=== PATIENT | male | born 1950 | race Caucasian/White ===

== ENCOUNTER 2018-06-12 14:28 | Emergency (ER) | payer BC, OTHER ==
[2018-06-12 14:32] VITALS: TEMP 98.5; BMI 25.1
--- NOTE | 2018-06-12 14:35 | PDOC ---
Attending Attestation - Resident Resident Name: Erum Walker - HPI HPI: 06/12/18 16:04 Pt presents to the ED complaining of
--- NOTE | 2018-06-12 14:52 | PDOC ---
History of Present Illness - General Chief Complaint: Pain, Acute Stated Complaint: RT BACK, RT SIDE PAIN Time Seen by Provider: 06/12/18 14:31 History Source: Patient Exam Limitations: No Limitations - History of Present Illness Initial Comments: 06/12/18 14:40 67yo M with no significant PMH presenting with R sided pain [id number] that has been getting progressively getting worse. Pt says pain is R sided around his abdomen and back. Pain is worse when laying down and walking around. He denies pain with strenuous activity, eating, sitting, standing. He denies n/v/d, urinary urgency and dysuria. He states his stream is longer and that he has occasional frequency. He denies fever, chills, back injury, surgeries, chest pain, sob, weakness, numbness, tingling, hematuria. He has not seen a doctor in years however he does have an appointment with Dr. Gomez in July. He has not been taking any medications for the pain. PMD: none PMH: none PSH: none Meds: none Allergies: nkda Past History - Past Medical History Allergies/Adverse Reactions: Allergies Allergy/AdvReac Type Severity Reaction Status Date / Time No Known Allergies Allergy Verified 06/12/18 14:30 - Suicide/Smoking/Psychosocial Hx Smoking History: Never smoked Have you smoked in the past 12 months: No Information on smoking cessation initiated: No Hx Alcohol Use: (social) Review of Systems - Review of Systems Constitutional: No: Chills, Fever, Loss of Appetite, Night Sweats, Weakness, Unexplained wgt Loss HEENTM: No: Eye Pain, Blurred Vision Respiratory: No: Cough, Shortness of Breath, Hemoptysis Cardiac (ROS): No: Chest Pain, Edema, Lightheadedness, Palpitations, Syncope ABD/GI: No: Constipated, Diarrhea, Nausea, Poor Appetite, Rectal Bleeding, Vomiting, Tarry Stools : Yes: Frequency. No: Burning, Dysuria, Flank Pain, Hematuria, Testicular Swelling, Testicular Pain Musculoskeletal: Yes: See HPI, Back Pain. No: Joint Pain, Joint Swelling, Muscle Pain, Muscle Weakness, Neck Pain, Joint Stiffness Integumentary: No: Symptoms Reported Neurological: No: Headache, Numbness, Seizure, Tingling, Tremors, Weakness, Unsteady Gait, Ataxia, Dizziness *Physical Exam - Vital Signs Last Vital Signs Temp Pulse Resp BP Pulse Ox 98.5 F 84 18 133/112 H 98 06/12/18 14:28 06/12/18 14:28 06/12/18 14:28 06/12/18 14:28 06/12/18 14:28 - Physical Exam General Appearance: Yes: Nourished, Appropriately Dressed. No: Apparent Distress HEENT: positive: EOMI, DARYN, Normal ENT Inspection Neck: positive: Trachea midline, Supple. negative: Carotid bruit, Lymphadenopathy (R), Lymphadenopathy (L) Respiratory/Chest: positive: Lungs Clear, Normal Breath Sounds. negative: Crackles, Rales, Rhonchi, Stridor, Wheezing Cardiovascular: positive: Regular Rhythm, Regular Rate, S1, S2. negative: Edema , JVD, Murmur Vascular Pulses: Carotid (R): 2+, Carotid (L): 2+, Dorsalis-Pedis (R): 2+, Doralis-Pedis (L): 2+ Gastrointestinal/Abdominal: positive: Normal Bowel Sounds, Soft. negative: Pulsatile Mass, Protuberent, Distended, Guarding, Rebound, Tenderness, Mass Musculoskeletal: positive: Other (negative slr, no pain with passive or active ROM in hip ). negative: CVA Tenderness, Muscle Spasm, Vertebral Tenderness Extremity: positive: Normal Capillary Refill, Pelvis Stable. 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 Pt says pain is R sided around his abdomen and back. Pain is worse when laying down and walking around. He denies pain with strenuous activity, eating, sitting, standing. He denies n/v/d, urinary urgency and dysuria. He states his stream is longer and that he has occasional frequency. He denies fever, chills, back injury, surgeries, chest pain, sob, weakness, numbness, tingling, hematuria. He has not seen a doctor in years however he does have an appointment with Dr. Gomez in July. He has not been taking any medications for the pain. Vitals: 113/112, otherwise wnl PE: no abdominal tenderness, no masses, no pulsatile mass, no bruit, no spinal or paravertebral tenderness, no muscle tenderness, negative SLR, full ROM no pain with active or passive ROM of hip. Stable hip. ddx: AAA, abscess, compression, cauda equina, sciatica, nephrolithaisis, pyelonephritis, cholecystitis, pancreatitis Pt has benign belly exam, no masses palpated, no pulsatile mass palpated, low suspicion for abdominal pathology. Pt does not have symptoms with straining, low suspicion for hernia. Will order xray and ua. Xray has not been read, taking a while and pt wants to go home, per my evaluation, I do not see any signs of fracture or displacement. Pt refusing medications in ED. UA negative for infection. Pt is otherwise stable, has pmd appointment, is ambulatory, benign abdomen, no abdominal symptoms. Can be dc home. given strict return precautions. 06/12/18 16:42 pt refusing to have BP rechecked. had bp checked by nurse *DC/Admit/Observation/Transfer Diagnosis at time of Disposition: Back pain Qualifiers: Back pain location: low back pain Back pain laterality: right Sciatica presence : without sciatica - Discharge Dispostion Disposition: HOME Condition at time of disposition: Stable - Referrals - Patient Instructions Printed Discharge Instructions: DI for Low Back Pain Additional Instructions: You were seen here today for back pain. Your urine test was normal. The Xray does not show anything significant. I highly recommend you see your primary care doctor. You can take ibuprofen or Tylenol for pain as needed. Please see your primary care doctor for further evaluation and management of your symptoms. Come back to the emergency room if pain gets worse, you have vomiting, you do not have bowel movements, you notice a mass or hernia, you have numbness/ tingling down your legs, or if any new concerning symptom develops. Thank you - Post Discharge Activity
[2018-06-12 16:28] LABS: URINE APPEARANCE Clear; URINE BILIRUBIN Negative (NEGATIVE); URINE COLOR Yellow; URINE GLUCOSE (UA) Negative (NEGATIVE); URINE KETONE Negative (NEGATIVE); URINE LEUK ESTERASE Negative (NEGATIVE); URINE NITRITE Negative (NEGATIVE); URINE PROTEIN Negative (NEGATIVE); URINE UROBILINOGEN 0.2 (0.2-1.0)
[2018-06-12 16:52] VITALS: BP 154/85; PULSE 78
== END 2018-06-12 16:55 | disposition home or self-care (01) ==
LOC: FER 14:28
DX: M54.30 Sciatica, unspecified side (principal)
CPT/HCPCS: 72100-TC-FY; 81003; 99285-25

== ENCOUNTER 2020-08-30 17:03 | Emergency (ER) | payer OTHER | END 2020-08-30 18:01 | disposition home or self-care (01) | LOC: JVIRT 17:03 | DX: R05 Cough (principal); Z11.52 Encounter for screening for COVID-19 | CPT/HCPCS: C9803; G2251-GT; U0003 ==

== ENCOUNTER 2021-06-05 20:37 | Emergency (ER) | payer OTHER ==
[2021-06-05 21:03] VITALS: BP 200/120; PULSE 95; TEMP 99.3; BMI 25.1
[2021-06-05] MEDS ORDERED: CEPHALEXIN MONOHYDRATE 500 MG CAPSULE (UD) PO ONE (21:23)
[2021-06-05] MEDS ORDERED: CEPHALEXIN MONOHYDRATE 500 MG CAPSULE (UD) ONE (21:25)
== END 2021-06-05 21:53 | disposition home or self-care (01) ==
LOC: FER 20:37
PROC: 0HQFXZZ Repair Right Hand Skin, External Approach (ICD-10-PCS; principal; 2021-06-05)
DX: S61.411A Laceration without foreign body of right hand, initial encounter (principal); W31.89XA Contact with other specified machinery, initial encounter
CPT/HCPCS: 73130-TC-RT-FY; 99283-25

== ENCOUNTER 2021-06-18 11:47 | Emergency (ER) | payer OTHER ==
[2021-06-18 11:58] VITALS: BP 192/107; PULSE 73; TEMP 97.9; BMI 25.1
== END 2021-06-18 12:13 | disposition home or self-care (01) ==
LOC: FER 11:47
DX: S61.412A Laceration without foreign body of left hand, initial encounter (principal); Y99.9 Unspecified external cause status; Z48.02 Encounter for removal of sutures
CPT/HCPCS: 99281-25

== ENCOUNTER 2023-04-27 13:15 | Emergency (ER) | payer OTHER ==
[2023-04-27] MEDS ORDERED: amLODIPine BESYLATE 10 MG TABLET (FP) PO ONE (13:33)
[2023-04-27 13:35] VITALS: TEMP 98.7; BMI 25.1
[2023-04-27] MEDS ORDERED: amLODIPine BESYLATE 5 MG TABLET (FP) ONE (13:35)
[2023-04-27 14:06] LABS: HEMATOCRIT 47.7 % (35.4-49); MCH 32.9 pg (25.7-33.7); MCHC 33.6 g/dl (32.0-35.9); MEAN CELL VOLUME 97.9 fl (80-96); MEAN PLT VOLUME 7.4 fl (7.5-11.1); RBC 4.87 10^6/uL (4.00-5.60); RDW 13.9 % (11.9-15.9); WHITE BLOOD COUNT 4.9 10^3/uL (4.0-10.8)
[2023-04-27 14:35] LABS: PLATELET ESTIMATE ADEQUATE
[2023-04-27 14:39] VITALS: BP 168/95; PULSE 76; RESP 12
[2023-04-27] MEDS ORDERED: ASPIRIN 81 MG CHEWABLE TABLETS PO ONE (14:40)
[2023-04-27 14:42] LABS: ALBUMIN 4.3 g/dl (3.4-5.0); BILIRUBIN,TOTAL 0.6 mg/dl (0.2-1); BLOOD UREA NITROGEN 18.2 mg/dl (7-18); CALCIUM 9.2 mg/dl (8.5-10.1); CREATININE 0.9 mg/dl (0.6-1.3); MAGNESIUM 2.1 mg/dL (1.8-2.4); POTASSIUM 4.1 mmol/L (3.5-5.1); SGOT/AST 28.867 U/L (15-37); SGPT/ALT 24.017 U/L (7-52); TOT PROT 7.1 g/dl (6.4-8.2)
[2023-04-27] MEDS ORDERED: ASPIRIN 81 MG CHEWABLE TABLETS ONE (15:04)
== END 2023-04-27 15:25 | disposition left against medical advice (07) ==
LOC: FER 13:15
DX: I16.1 Hypertensive emergency (principal); R42 Dizziness and giddiness; R79.89 Other specified abnormal findings of blood chemistry
CPT/HCPCS: 36415; 70450-TC; 71046-TC-FY; 80053; 83735; 84484; 85027; 93005; 99285-25